=== PATIENT | male | born 1970 | race Caucasian/White ===

== ENCOUNTER 2017-05-05 16:10 | Inpatient (IN) | payer OTHER ==
[~2017-05-05] VITALS: Ht 175.3 cm; Wt 89.4 kg
--- NOTE | 2017-05-05 16:56 | NUR ---
SENT BY DR. HOFF FOR BS [phone] [id number] WEIGHT LOSS IN 3MONTHS. PLACED ON MONITOR AWAITING MD ORDER
--- NOTE | 2017-05-05 17:30 | NUR ---
RAC #18 IV ACCESS. BLOOD SAMPLE COLLECTED SENT TO LAB
[2017-05-05 17:46] LABS: BASOPHILS # (AUTO) 0.1 /CMM (0.0-0.2); EOSINOPHILS # (AUTO) 0.2 /CMM (0.0-0.7); HEMATOCRIT 47 % (39-51); MEAN CORPUSCULAR HEMOGLOBIN 32 PG (26.0-33.0); MEAN CORPUSCULAR HGB CONC 34 g/dl (31.0-36.0); MEAN CORPUSCULAR VOLUME 95 fL (80-96); MONOCYTES # (AUTO) 0.5 /CMM (0.1-1.30); MONOCYTES % (AUTO) 7.8 % (2.0-12.0); NEUTROPHILS # (AUTO) 3.8 /CMM (1.8-8.9); NEUTROPHILS % (AUTO) 58.2 % (43.0-81.0); PLATELET COUNT (AUTO) 181 /CMM (150-450); RDW COEFFICIENT OF VARIATION 11.9 (11.5-15.0); RED BLOOD CELL COUNT(AUTO) 4.96 MIL/uL (4.5-6.0); WHITE BLOOD COUNT (AUTO) 6.6 K/uL (4.3-11.0)
[2017-05-05] MEDS ORDERED: IV NS 0.9% 1,000 ML ONE (18:00)
[2017-05-05] MEDS ORDERED: IV SET PRIMARY PUMP SET 1 EA INFUS.SET MC ONE ×2 (18:00→19:52)
[2017-05-05] MEDS ORDERED: IV NS 0.9% 1,000 ML BAG IV ONE (18:00)
[2017-05-05 18:04] LABS: ALBUMIN 4.1 g/dL (3.4-5.0); ALKALINE PHOSPHATASE 141 U/L (46-116); BILIRUBIN,DIRECT 0.2 mg/dL (0.0-0.2); CALCIUM, SERUM 9.7 mg/dL (8.5-10.1); CARBON DIOXIDE 27 mmol/L (21-32); CHLORIDE 93 mmol/L (98-107); CREATININE 0.8 mg/dL (0.6-1.3); POTASSIUM 3.7 mmol/L (3.5-5.1); SODIUM SERUM 132 mmol/L (136-145); TROPONIN I < 0.017 ng/mL (0.00-0.056); UREA NITROGEN, BLOOD 13 mg/dL (7-18)
[2017-05-05 18:09] LABS: GLUCOSE 401 mg/dL (74-106)
[2017-05-05 18:29] LABS: INR 0.95 (0.87-1.13); PROTHROMBIN TIME 9.9 SECS (9.5-12.7)
[2017-05-05] MEDS ORDERED: INSULIN REGULAR, HUMAN 100 UNIT/ML 10 ML VIAL IV ONE (18:30)
[2017-05-05] MEDS ORDERED: INSULIN REGULAR, HUMAN 100 UNIT/ML 10 ML VIAL ONE (18:33)
[2017-05-05 18:44] LABS: APPEARANCE,URINE Clear (CLEAR); BILIRUBIN,URINE SMALL (NEGATIVE); BLOOD, URINE Negative Ery/uL (NEGATIVE); COLOR,URINE Yellow (YELLOW); KETONES,URINE >=160 (NEGATIVE); LEUKOCYTE ESTERASE ,URINE Negative (NEGATIVE); NITRITE, URINE Negative (NEGATIVE); PH,URINE 5.5 (5.0-8.0); PROTEIN,URINE Negative (NEGATIVE); UGLUCOSE 500 MG/DL mg/dL (NEGATIVE); UROBILINOGEN,URINE 0.2 EU/dL (0.2)
[2017-05-05 18:51] LABS: ALANINE AMINOTRANSFERASE 285 U/L (12-78)
[2017-05-05 18:52] LABS: ASPARTATE AMINOTRANSFERASE 91 U/L (15-37)
--- NOTE | 2017-05-05 19:23 | NUR ---
REPORT GIVEN TO ED FOR GETACHEW
[2017-05-05] MEDS ORDERED: FLUCONAZOLE IN NS 100 MG in PREMIX 1 EA IV SCH ×2 (19:30)
[2017-05-05 19:48] LABS: BACTERIA,URINE None seen /HPF (None Seen); RBC,URINE NONE SEEN /HPF (0-2); SQUAMOUS EPITHELIAL CELL,UR Few /HPF (None Seen); WBC,URINE 0-2 /HPF (0-3)
--- NOTE | 2017-05-05 20:16 | NUR ---
PATIENT WILL BE ADMITTED INTO ROOM 315-1.
--- NOTE | 2017-05-05 20:39 | NUR ---
REPORT CALLED TO [employer]ICKET PRINTER AND TAGGERGUSTAVO KEMP. WILL TRANSPORT PT TO ROOM 315-1
--- NOTE | 2017-05-05 20:39 | NUR ---
CALLED [facility] DR COSBY WAS PAGED.
--- NOTE | 2017-05-05 20:40 | NUR ---
DR WALL ON THE PHONE WITH DR COSBY.
[2017-05-05] MEDS ORDERED: PANT40TA2 PO (20:42)
[2017-05-05] MEDS ORDERED: HYDR25TA4 PO (20:42)
[2017-05-05] MEDS ORDERED: CEPH-570 PO (20:42)
[2017-05-05] MEDS ORDERED: SIMV40TA5 PO (20:42)
--- NOTE | 2017-05-05 22:13 | NUR ---
SPOKE WITH [facility] [[email or web address]. AUTH FOR ADMIT [id number].
[2017-05-05 22:20] VITALS: BP 127/74
--- NOTE | 2017-05-05 22:20 | NUR ---
RN NOTES RECEIVED PATIENT FROM ER FOR DX OF NEW ONSET DIABETES. PATIENT AO X 3, ABLE TO MAKE NEEDS KNOWN. NO ACUTE DISTRESS NOTED. DENIES ANY PAIN AT THIS TIME. NO SYMPTOMS OF HYPER/HYPOGLYCEMIA. IV SITE PATENT, INTACT; FLUSHED. SKIN INTACT. ON LOW BED WITH BILATERAL UPPER SIDE RAILS. CALL LIGHT WITHIN EASY REACH. WILL CONTINUE TO MONITOR.
[2017-05-05] MEDS ORDERED: HYDROCODONE/APAP 5/325MG 1 EACH TABLET PO PRN (23:30)
[2017-05-05] MEDS ORDERED: INSULIN DETEMIR 100 UNIT/ML CARTRIDGE SQ SCH (23:30)
[2017-05-05] MEDS ORDERED: SIMVASTATIN 40 MG TABLET PO SCH (23:30)
[2017-05-05] MEDS ORDERED: *INSULIN REGULAR(HUMULIN R)HUM 100 UNIT/ML VIAL SQ PRN (23:30)
[2017-05-05] MEDS ORDERED: DEXTROSE 50%-WATER 50 ML DISP.SYRIN IV PRN (23:30)
[2017-05-05] MEDS ORDERED: ACETAMINOPHEN 325 MG TABLET PO PRN (23:30)
--- NOTE | 2017-05-05 23:30 | NUR ---
RN NOTES RECEIVED ADMITTING ORDERS FROM DR. COSBY, NOTED AND CARRIED OUT.
[2017-05-05] MEDS ORDERED: ZOLPIDEM TARTRATE 5 MG TABLET ONE (23:50)
[2017-05-05] MEDS ORDERED: SIMVASTATIN 40 MG TABLET ONE (23:53)
[2017-05-06] MEDS ORDERED: IV NS 0.9% 250 ML IV ONE (00:08)
[2017-05-06] MEDS ORDERED: CT SWABBABLE VALVE TRANS SET 1 EA INFUS.SET MC ONE (00:08)
[2017-05-06] MEDS ORDERED: IOHEXOL-300 100 ML VIAL IV ONE (00:08)
[2017-05-06] MEDS ORDERED: INSULIN DETEMIR 100 UNIT/ML CARTRIDGE SQ ONE (00:26)
[2017-05-06] MEDS ORDERED: INSULIN REGULAR, HUMAN 100 UNIT/ML 10 ML VIAL ONE (00:26)
[2017-05-06] MEDS: ZOLPIDEM TARTRATE 5 MG TABLET PO PRN ×2 (00:56→22:53)
--- NOTE | 2017-05-06 06:10 | NUR ---
RN NOTES PATIENT ASLEEP. EASILY AROUSABLE. RESPIRATIONS EVEN. NO SIGNS OF PAIN NOTED. NO SYMPTOMS OF HYPER/HYPOGLYCEMIA. DUE MEDS GIVEN WITH NO ASE NOTED. NEEDS ATTENDED. SAFETY PRECAUTIONS AND COMFORT MEASURES IN PLACE. WILL GIVE REPORT TO DAY SHIFT FOR CONTINUITY OF CARE.
[2017-05-06] MEDS: BLOOD SUGAR DIAGNOSTIC 1 EACH STRIP VI SCH ×4 (06:30→21:24)
[2017-05-06] MEDS: INSULIN REGULAR, HUMAN 100 UNIT/ML 3 ML VIAL SQ PRN ×3 (06:33→17:56)
--- NOTE | 2017-05-06 07:15 | NUR ---
RECEIVED PT IN BED, SLEEPING BUT AWAKENS TO NAME. PT IS A/O X4, NO COMPLAINTS OF PAIN. BED IS IN LOW AND LOCKED POSITION, SIDE RAILS UP X2 AND CALL LIGHT IS IN REACH.
[2017-05-06 07:23] LABS: BASOPHILS % (AUTO) 0.4 % (0.0-2.0); EOSINOPHILS # (AUTO) 0.2 /CMM (0.0-0.7); EOSINOPHILS % (AUTO) 3.6 % (0.0-6.0); HEMATOCRIT 41 % (39-51); HEMOGLOBIN 14.7 g/dL (13.5-17.5); MEAN CORPUSCULAR HEMOGLOBIN 33 PG (26.0-33.0); MEAN CORPUSCULAR HGB CONC 35 g/dl (31.0-36.0); MEAN CORPUSCULAR VOLUME 94 fL (80-96); MONOCYTES # (AUTO) 0.6 /CMM (0.1-1.30); MONOCYTES % (AUTO) 9.4 % (2.0-12.0); NEUTROPHILS # (AUTO) 3.2 /CMM (1.8-8.9); NEUTROPHILS % (AUTO) 53.6 % (43.0-81.0); PLATELET COUNT (AUTO) 155 /CMM (150-450); RDW COEFFICIENT OF VARIATION 12.4 (11.5-15.0); RED BLOOD CELL COUNT(AUTO) 4.42 MIL/uL (4.5-6.0); WHITE BLOOD COUNT (AUTO) 5.9 K/uL (4.3-11.0)
[2017-05-06] MEDS ORDERED: INSULIN REGULAR, HUMAN 100 UNIT/ML 3 ML VIAL SQ SCH (07:30)
[2017-05-06 07:42] LABS: ALBUMIN 3.4 g/dL (3.4-5.0); BILIRUBIN,TOTAL 0.9 mg/dL (0.2-1.0); CALCIUM, SERUM 9.1 mg/dL (8.5-10.1); CREATININE 0.6 mg/dL (0.6-1.3); POTASSIUM 3.2 mmol/L (3.5-5.1); TOTAL PROTEIN, SERUM 6.9 g/dL (6.4-8.2)
[2017-05-06 07:57] LABS: THYROID STIMULATING HORMONE 3.047 uIU/mL (0.358-3.74)
[2017-05-06 08:00] VITALS: BP 107/58
[2017-05-06] MEDS: PANTOPRAZOLE 40 MG TABLET.DR PO SCH (08:15)
[2017-05-06] MEDS: LISINOPRIL (5MG) 5 MG TABLET PO SCH (09:39)
[2017-05-06] MEDS ORDERED: POTASSIUM CHLORIDE 20 MEQ TAB.PRT.SR PO ONE (10:30)
[2017-05-06] MEDS: GEMFIBROZIL 600 MG TABLET PO SCH ×2 (11:20→21:11)
[2017-05-06] MEDS: INSULIN REGULAR, HUMAN 100 UNIT/ML 3 ML VIAL SQ SCH ×2 (12:59→17:58)
[2017-05-06 16:00] VITALS: BP 115/75
[2017-05-06 16:01] VITALS: BP 115/75
[2017-05-06] MEDS ORDERED: FLUCONAZOLE IN NS 100 MG in PREMIX 1 EA IV SCH ×4 (16:30→20:00)
--- NOTE | 2017-05-06 18:24 | NUR ---
PT IS AWAKE IN BED WITH AT BEDSIDE. NO COMPLAINTS OF PAIN OR SIGNS OF DISTRESS. IV ON RAC INTACT AND PATENT, SALINE LOCKED. BED IS IN LOW AND LOCKED POSITION, SIDE RAILS UP X2 AND CALL LIGHT IS IN REACH. WILL ENDORSE TO CASTING ROOM OPERATOR RN FOR CONTINUITY OF CARE.
--- NOTE | 2017-05-06 19:21 | NUR ---
MS RN OPENING NOTES: RECEIVED PT AWAKE WITH AT BEDSIDE. NO SIGNS OR SYMPTOMS OF DISTRESS NOTED AT THIS TIME. PT HAS IV ON RAC AND IS PATENT AND INTACT. PT IS CURRENTLY S/L. BED KEPT IN LOCKED, LOWEST POSITION, AND SIDE RAILS X 2 UP. CALL LIGHT WITHIN PT'S REACH. WILL CONTINUE TO MONITOR PT.
[2017-05-06 20:00] VITALS: BP 104/69
[2017-05-06] MEDS ORDERED: IV SET PRIMARY PUMP SET 1 EA INFUS.SET MC ONE (21:01)
[2017-05-06] MEDS ORDERED: SECONDARY IV SET 1 EA INFUS.SET MC ONE (21:02)
[2017-05-06] MEDS ORDERED: IV NS 0.9% 50 ML IV ONE (21:03)
--- NOTE | 2017-05-06 21:56 | NUR ---
MS RN NOTES: BLOOD SUGAR WAS 254. PT RECEIVED LEVEMIR 24 UNITS AND REGULAR 6 UNITS OF INSULIN. WILL CONTINUE TO MONITOR PT.
[2017-05-06] MEDS ORDERED: INSULIN DETEMIR 100 UNIT/ML CARTRIDGE SQ SCH (22:00)
--- NOTE | 2017-05-06 22:53 | NUR ---
MS RN NOTES: PT REQUESTED FOR HIS AMBIEN 5MG. WILL CONTINUE TO MONITOR PT.
--- NOTE | 2017-05-07 00:07 | NUR ---
MS RN NOTES: JUST NOTICED THAT DIFLUCAN WAS NOT SCANNED FOR 05/06/171999. HOWEVER, IT WAS ADMINISTERED AT 05/06/171999.
[2017-05-07] MEDS: BLOOD SUGAR DIAGNOSTIC 1 EACH STRIP VI SCH ×2 (06:00→12:13)
[2017-05-07] MEDS: PANTOPRAZOLE 40 MG TABLET.DR PO SCH (06:35)
[2017-05-07] MEDS: INSULIN REGULAR, HUMAN 100 UNIT/ML 3 ML VIAL SQ SCH ×2 (06:59→12:13)
[2017-05-07] MEDS: INSULIN REGULAR, HUMAN 100 UNIT/ML 3 ML VIAL SQ PRN ×2 (07:01→12:14)
--- NOTE | 2017-05-07 07:01 | NUR ---
MS RN NOTES: BLOOD SUGAR WAS 228. STANDING ORDER OF 8 UNITS WAS GIVEN AND IN ADDITION, ANOTHER 6 UNITS OF REGULAR INSULIN WAS GIVEN. ORANGE JUICE PROVIDED FOR THE MEANTIME SINCE THERE IS NO BREAKFAST TRAY AT BEDSIDE YET. WILL CONTINUE TO MONITOR PT.
[2017-05-07 07:15] LABS: ALBUMIN 3.4 g/dL (3.4-5.0); BILIRUBIN,TOTAL 0.8 mg/dL (0.2-1.0); CREATININE 0.5 mg/dL (0.6-1.3); POTASSIUM 3.3 mmol/L (3.5-5.1); TOTAL PROTEIN, SERUM 6.8 g/dL (6.4-8.2)
--- NOTE | 2017-05-07 07:21 | NUR ---
MS RN CLOSING NOTES: ALL NEEDS WERE ATTENDED AND ANTICIPATED FOR. PT IS AWAKE AND WATCHING TELEVISION. PT IS A/O X4. NO SIGNS OR SYMPTOMS OF DISTRESS NOTED AT THIS TIME. PT HAS IV ON R AC#18G AND IS PATENT AND INTACT. PT IS CURRENTLY S/L. BED KEPT IN LOCKED, LOWEST POSITION, AND SIDE RAILS X 2 UP. CALL LIGHT WITHIN PT'S REACH. ENDORSED TO AM NURSE FOR GETACHEW.
[2017-05-07 08:00] VITALS: BP 116/73
--- NOTE | 2017-05-07 08:00 | NUR ---
MS RN NOTES PATIENT IN BED RESTING NO SOB OR ACUTE DISTRESS NOTED. PATIENT ALERT, ORIENTED X. DENIES ANY PAIN OR DISCOMFORT. BED IN LOW LOCKED POSITION, CALL LIGHT WITHIN REACH. WILL CONTINUE TO MONITOR.
[2017-05-07 08:31] VITALS: BP 116/73
[2017-05-07] MEDS: LISINOPRIL (5MG) 5 MG TABLET PO SCH (08:31)
[2017-05-07] MEDS: GEMFIBROZIL 600 MG TABLET PO SCH (08:31)
[2017-05-07] MEDS ORDERED: INSU100V28 SQ (10:59)
[2017-05-07] MEDS ORDERED: Blood Sugar Diagnostic VI (10:59)
[2017-05-07] MEDS ORDERED: GEMF600T PO (10:59)
[2017-05-07] MEDS ORDERED: POTASSIUM CHLORIDE 20 MEQ TAB.PRT.SR PO SCH (11:00)
--- NOTE | 2017-05-07 12:00 | NUR ---
MS RN NOTES PATIENT AND PATIENTS EDUCATED ON FINGER STICK CHECKS AND INSULIN INJECTIONS, OBSERVED PATINETS PERFORM FINGER STICK AND INJECT INSULIN. PROPERLY PERFORMED. DIABETIC TEACHING ALSO PROVIDED. ASKED LIME SLUDGE MIXER TO EDUCATE PATIENT AND FAMILY BEFORE DISCHARGE.
--- NOTE | 2017-05-07 14:20 | NUR ---
MS RN NOTES PATIENT DISCHARGED HOME WITH . EDUCATION PROVIDED TO PATIENT AND ON DIABETES AND DISCHARGE INSTRUCTIONS. PATIENT AND VERBALIZED UNDERSTANDING. DEMONSTRATED ACCU CHECK AND INSULIN ADMINISTRATION. PRESCRIPTION PROVIDED, INSTRUCTED ON MEDICATIONS. ALL BELONGINGS ACCOUNTED FOR, BELONGING LIST SINGED. PATIENT REFUSED PICTURES UPON DISCHARGE. IV REMOVED WITH MINIMAL BLEEDING. ID BAND ALSO REMOVED. PATIENT ESCORTED TO CAR BY CUSTOMER SUCCESS ADVOCATE.
[2017-05-07] MEDS ORDERED: INSULIN DETEMIR 100 UNIT/ML CARTRIDGE SQ SCH (22:00)
[2017-05-09 08:09] LABS: CARCINOEMBRYONIC AG (CEA) 2.7 ng/mL (0.0-4.7)
== END 2017-05-07 14:27 | disposition home or self-care (01) | DRG 638 ==
LOC: ER 16:12 → MED 20:17
PROVIDERS: ADMIT Nurse Practitioner Acute Care; ATTEND Internal Medicine
DX: E11.65 Type 2 diabetes mellitus with hyperglycemia (principal); E87.2 Acidosis; B48.8 Other specified mycoses; B37.0 Candidal stomatitis; E78.1 Pure hyperglyceridemia; E78.5 Hyperlipidemia, unspecified; I10 Essential (primary) hypertension; R74.0 Nonspecific elevation of levels of transaminase and lactic acid dehydrogenase [LDH]; Z72.89 Other problems related to lifestyle; K70.0 Alcoholic fatty liver; R16.2 Hepatomegaly with splenomegaly, not elsewhere classified
CPT/HCPCS: 36415; 71010-TC; 80048-TC; 80053-TC; 80061-TC; 80074; 80076-TC; 81000-TC; 82378; 82962-TC; 83605-TC; 84443-TC; 84484-TC; 85025-TC; 85730-TC; 86301; 87040-TC; 87081-TC; 87086-TC; A4216; A4606; J1450; J1815; J7030; J7050; Q9967; Z7610